=== PATIENT | male | born 1990 | race Caucasian/White ===

== ENCOUNTER 2017-10-27 15:13 | Emergency (ER) | payer BC ==
[~2017-10-27] VITALS: Ht 182.9 cm; Wt 85.2 kg
[2017-10-27 16:58] LABS: HEMATOCRIT 47.3 % (38.0-50.0); HEMOGLOBIN 16.3 G/DL (12.5-16.6); MCH 26.9 PG (29.0-34.0); MCHC 34.5 G/DL (30.0-36.0); MCV 78.2 FL (86-99); PLATELET COUNT 354 K/uL (156-360); RBC DIS.WIDTH-SD 39.3 % (39-53); RED BLOOD COUNT 6.05 M/uL (4.00-5.50); WHITE BLOOD COUNT 17.5 K/uL (4.1-10.2)
[2017-10-27 17:08] LABS: CHLORIDE 107 mEq/L (99-109); POTASSIUM 3.6 mEq/L (3.7-5.4); SODIUM 139 mEq/L (136-147)
[2017-10-27 17:09] LABS: GLUCOSE 95 mg/dL (70-99)
[2017-10-27 17:13] LABS: CREATININE 0.8 mg/dL (0.6-1.3); GFR ESTIMATE (CALCULATED) > 59 mL/min/ (58.99-99999)
[2017-10-27 17:14] LABS: UREA NITROGEN (BUN) 11 mg/dL (9-23)
[2017-10-27 17:21] LABS: TROP-I INTERPRETATION NEGATIVE; TROPONIN-I < 0.01 ng/mL (0.0-0.30)
[2017-10-27 18:45] VITALS: BP 130/70
== END 2017-10-27 18:48 | disposition home or self-care (01) ==
LOC: EME 15:13
PROVIDERS: Emergency Medicine
DX: R07.2 Precordial pain (principal); F17.200 Nicotine dependence, unspecified, uncomplicated
CPT/HCPCS: 71046; 80048; 84484; 85027; 93005; 99281; 99285; J1885